=== PATIENT | male | born 1980 | race Caucasian/White ===

== ENCOUNTER → 2016-07-10 | Day surgery (SDC) | payer BC ==
--- NOTE | 2016-07-09 13:20 | History and Physical: Surg Cnt ---
History & Physical Date Jul 09, 2016. Chief Complaint nasal obstruction History of Present Illness The patient is a 36 year old male with complaints of nasal obstruction Additional History Hepatic Disease: No Endocrine Disorder: No Kidney Disease: No Hypertension: No Heart Disease: No Bleeding Tendencies: No Infectious Diseases: No Allergies Coded Allergies: NO KNOWN DRUG ALLERGIES (Verified Allergy, Unknown, ., 07/02/16) Home Medications No Active Prescriptions or Reported Meds Physical Examination Skin: warm/dry, no rash Eyes: normal inspection, EOMI, sclerae normal ENT: normal ENT inspection, pharynx normal, + pertinent finding (deviated septum) Head: normocephalic, atraumatic Neck: supple, no adenopathy, trachea midline Respiratory/Chest: lungs clear, normal breath sounds, no respiratory distress Cardiovascular: regular rate, rhythm, no edema, no murmur Abdomen / GI: normal bowel sounds, non tender Back: normal inspection Extremities: normal inspection, normal range of motion Neurologic/Psych: no motor/sensory deficits, alert, normal reflexes, oriented x 3 Diagnosis septal deviation Plan of Treatment septoplasty, celon turbinates
[~2016-07-10] VITALS: Ht 180.3 cm; Wt 70.0 kg
[~2016-07-10] MED LIST: ATROPINE SULFATE 0.1 MG/ML 5ML SYR IV PRN; BACITRACIN OINT 15 GM TUBE ONE; CEFAZOLIN 1000MG/55 ML D5W IV SCH; DEXAMETHASONE SOD INJ 4 MG/ML VIAL ONE; EpINEphrine INJ 1MG/ML AMP 1 MG/ML AMP ONE; FENTANYL CITRATE INJ 50 MCG/1 ML 2 ML VIAL IV PRN; FENTANYL CITRATE INJ 50 MCG/1 ML 2 ML VIAL ONE; GELATIN SPONGE 12-7MM ONE; GLYCOPYRROLATE INJ 0.2 MG/ML VIAL ONE; KETOROLAC TROMETHAMINE 30 MG/ML VIAL IV. PRN; LABETALOL HCL IV 5 MG/ML 20ML IV PRN; LACTATED RINGER'S 1000ML 1,000 ML IV SCH; LIDO 2%/EPINEPHRINE 1:100000 20 ML VIAL INFIL ONE; LIDOCAINE 4% MPF SOAK 5 ML = 1 DOSE TOP ONE; LIDOCAINE HCL 2% 2 ML VIAL (20MG/ML) ONE; LIDOCAINE HCL 4% TOP 50 ML VIAL EXT ONE; MIDAZOLAM HCL 1 MG/ML 2ML VIAL ONE; ONDANSETRON INJ 2 MG/ML 2 ML VIAL IV PRN; ONDANSETRON INJ 2 MG/ML 2 ML VIAL ONE; OXYC-57 PO; OXYCODONE/ACETAMINOPHEN 5-325 TAB PO PRN; PROPOFOL IV EMULSION 10 MG/ML 20 ML VIAL IV ONE; SODIUM CHLORIDE 0.9% 1000ML 1,000 ML IV SCH
[2016-07-10 07:45] VITALS: Ht 180.3 cm; Wt 70.0 kg
--- NOTE | 2016-07-10 08:08 | History & Physical Bridge Note ---
H&P Re-Evaluation Bridge Note: I have examined the patient, reviewed the History & Physical and in the interval since the performance of the History & Physical I have noted the following changes of clinical significance: No changes noted
--- NOTE | 2016-07-10 09:08 | Discharge Instructions-SurgCtr ---
Discharge Instructions Visit Reason for Visit: Septal Deviation Discharge Discharge Diagnosis / Problem: same Discharge Goals Goal(s): Improve function Activity Recommendations Activity Limitations: resume your previous activity Anesthesia . Post Anesthesia Instructions: If you have had General Anesthesia or IV Sedation: * Do not drive today. * Resume driving when surgeon permits. * Do not make important decisions or sign legal documents today. * Call surgeon for: 1. Temperature elevations greater than 101 degrees F. 2. Uncontrollable pain. 3. Excessive bleeding. 4. Persistent nausea and vomiting. 5. Medication intolerance (nausea, vomiting or rash). * For nausea and vomiting use only clear liquids such as: tea, soda, bouillon until nausea subsides, then gradually increase diet as tolerated. * If you have any concerns or questions, call your surgeon's office. If physician is unavailable and it is an emergency, call 911 or go to the nearest emergency room. . Instructions / Follow-Up Instructions / Follow-Up ACTIVITY RECOMMENDATIONS: * Being up and around is good, but no strenuous activity, heavy lifting or physical exertion for one week. * Keep your head elevated 30 degrees when lying down or sleeping. * Do not blow your nose for 48 hours, sniff back instead. * Avoid hot showers. OVER THE COUNTER MEDICATIONS: * You may use Tylenol * Avoid aspirin or aspirin containing products, e.g. as they may increase bleeding. SPECIAL CARE INSTRUCTIONS: * Expect to have bloody drainage from your nose and/or down your throat for one to three days. Change drip pad as needed. * Begin irrigating your nose with saline solution today, at least six to ten times per day and sniff back to help remove old clots or crust. * You may experience nasal and facial congestion, pain and pressure, this is normal. * Please call with any significant and/or progressive pain, redness, swelling around the eyes, visual changes, fever of 101.5 degrees F, active bleeding or any problems or concerns. * If active bleeding occurs, spray the nose three times at one minute intervals with Afrin spray and call or cell phone: . If unable to reach the doctor, go to the nearest Emergency Department. Special Diet: * Avoid extremely hot fluids. FOLLOW UP VISIT: Follow-up Visit with Dr. Ortega If not already scheduled, please call to schedule. Diet Recommendations Home Diet: resume previous diet Procedures Procedures Performed: Septoplasty, Celon Turbinate Pending Studies Studies pending at discharge: no Medical Emergencies . Who to Call and When: Medical Emergencies: If at any time you feel your situation is an emergency, please call 911 immediately. . Non-Emergent Contact Non-Emergency issues call your: Primary Care Provider . . "Provider Documentation" section prepared by Renee Godoy PA Drug Monitoring Program Search Results: no issues identified
[2016-07-10 09:51] VITALS: TEMP 36.8
--- NOTE | 2016-07-10 10:13 | Anesthesia Progress Nt - [facility] ---
Anesthesia Post Op Note Date & Time Jul 10, 2016 at 10:13 Vital Signs Pain Intensity: 0 Vital Signs Past 12 Hours Date Time Temp Pulse Resp B/P Pulse Ox O2 Delivery O2 Flow Rate FiO2 07/10/16 09:58 71 118/77 99 Room Air 07/10/16 09:51 74 17 97 07/10/16 09:51 36.8 72 17 07/10/16 09:48 124/81 07/10/16 09:46 71 19 07/10/16 09:46 71 19 96 07/10/16 09:43 127/78 07/10/16 09:41 79 26 97 07/10/16 09:41 89 23 95 07/10/16 09:38 119/79 07/10/16 09:34 Room Air 07/10/16 09:33 113/79 07/10/16 09:31 82 20 07/10/16 09:31 72 20 97 07/10/16 09:28 126/84 07/10/16 09:26 72 21 99 07/10/16 09:26 68 26 99 07/10/16 09:23 115/78 07/10/16 09:18 117/79 07/10/16 09:16 71 19 07/10/16 09:16 72 19 98 07/10/16 09:13 113/84 07/10/16 09:11 73 18 99 07/10/16 09:11 72 16 99 07/10/16 09:08 112/86 07/10/16 09:03 36.8 86 12 125/88 99 Diffusion Mask 6 07/10/16 07:30 36.7 79 16 121/80 99 Room Air Notes Mental Status: alert / awake / arousable, participated in evaluation Pt Amnestic to Procedure: Yes Nausea / Vomiting: adequately controlled Pain: adequately controlled Airway Patency, RR, SpO2: stable & adequate BP & HR: stable & adequate Hydration State: stable & adequate Anesthetic Complications: no major complications apparent
[2016-07-10 10:34] VITALS: BP 107/74; PULSE 73; O2SAT 99
--- NOTE | 2016-07-10 11:55 | OPERATIVE REPORT ---
DATE OF OPERATION: 07/10/2016 PREOPERATIVE DIAGNOSIS: Septal deviation and chronic rhinitis. POSTOPERATIVE DIAGNOSIS: Same. PROCEDURE: Septoplasty and radiofrequency volume reduction of the inferior turbinates. SURGEON: Dr. Ortega. ANESTHESIA: General LMA. COMPLICATIONS: None. BLOOD LOSS: 100 mL. HISTORY OF PRESENT ILLNESS: This 36-year-old gentleman presented with significant nasal obstruction, septal deviation to the right and hypertrophy of the turbinates. OPERATION AND FINDINGS: PROCEDURE: The patient brought to operating room and placed in supine position. General anesthesia was induced using LMA, prepped, draped in usual sterile manner. Nose decongested using cottonoids with topical solution of 4 mL of 4% Xylocaine mixed with 1 mL of epinephrine. Injection 2% Xylocaine with 1:100,000 strength epinephrine was also used. The inferior turbinates were treated with radiofrequency volume reduction using the [employer] machine creating 4 lesions in each inferior turbinate. The inferior turbinates were fractured laterally. The left hemitransfixion incision was made and mucoperichondrium was elevated off of the left side of the septum. Cartilage inferiorly from the vomer maxillary crest and posteriorly from the perpendicular plate of the ethmoid. There was vomer crest spur toward the left and a large posterior ethmoid spur to the right. This was isolated via bilateral posterior tunnels and these spurs were removed using the Yunior rongeurs and the Irwin forceps. A small strip of cartilage was removed from inferiorly to allow the septum to return to the midline. The septum was closed using continuous mattress suture of 4-0 plain gut suture. The Gelfoam anterior nasal packing of Gelfoam was placed. The patient tolerated procedure well and was taken to recovery area in satisfactory condition. I attest to the content of the Intraoperative Record and any orders documented therein. Any exceptio ns are noted below.
== END | disposition home or self-care (01) ==
LOC: X.SURG 07:23
PROVIDERS: ATTEND Otolaryngology
DX: J34.2 Deviated nasal septum (principal); J31.0 Chronic rhinitis